=== PATIENT | female | born 2000 | race Caucasian/White ===

== ENCOUNTER → 2022-12-15 15:53 | Outpatient (CLI) | payer OTHER, SELFPAY ==
--- NOTE | ~2022-12-15 | XR_ITS ---
EXAMINATION:XR_[id number]_CR DATE: 12/15/2022 16:38 INDICATION: Neck pain TECHNIQUE: AP, lateral, lateral swimmers and odontoid views of the cervical spine are provided. COMPARISON: None FINDINGS: There is straightening of the cervical spine which can be positional or due to muscular spa sm. Alignment is normal. The odontoid process is intact. No fracture is identified. Vertebral body he ights and disk spaces are normal. Prevertebral soft tissues are normal. IMPRESSION: 1. No acute osseous abnormality. Reviewed, dictated and finalized at location B.
== END ==
DX: M54.2 Cervicalgia (principal); V53.6XXA Passenger in pick-up truck or van injured in collision with car, pick-up truck or van in traffic accident, initial encounter
CPT/HCPCS: 72040

== ENCOUNTER 2023-09-09 11:05 | Outpatient (CLI) | payer OTHER, SELFPAY ==
--- NOTE | ~2023-09-09 | US_ITS ---
US breast BI complete DATE: 09/09/2023 12:02 INDICATION: Nipple discharge bilaterally for 3 months, diminishing recently TECHNIQUE: Real-time imaging of both complete breasts including all 4 quadrants and subareolar area o f each breast COMPARISON: None FINDINGS: No suspicious mass or shadowing of either breast is detected. No cyst or other significant sonographic finding is noted. IMPRESSION: BI-RADS Category 1: Negative Reviewed, dictated and finalized at Location A. Reviewed, dictated and finalized at location A. 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
== END 2023-09-09 11:06 | disposition home or self-care (01) ==
DX: N64.52 Nipple discharge (principal)
CPT/HCPCS: 76641

== ENCOUNTER 2025-03-10 08:23 | Emergency (ER) | payer OTHER, SELFPAY ==
[2025-03-10 08:35] VITALS: BP 116/79; PULSE 92; RESP 16; TEMP 36.5; O2SAT 100
--- NOTE | 2025-03-10 13:40 | ED.EXTPRO ---
HPI - Extremity Problem General Chief complaint: Extremity Problem,Nontraumatic Stated complaint: INGROWN TOENAIL Time Seen by Provider: 03/10/25 08:40 Source: patient and RN notes reviewed Mode of arrival: ambulatory Limitations: no limitations History of Present Illness HPI Narrative: 25-year-old female presents Express Care complaining ingrown toenail to left great toe. Patient states she knows yesterday. Patient reports pain, redness, swelling to her left great toe. Patient says she got some pus out of a yesterday. Patient denies any injuries, fevers, body aches, chills, or any other symptoms. Related Data Home Medications ?Medication ?Instructions ?Recorded ?Confirmed ?Last Taken ?Type cholecalciferol (vitamin D3) 50 50 mcg PO DAILY 01/23/25 03/06/25 Unknown History mcg (2,000 unit) capsule fluoxetine 10 mg capsule (Prozac) 10 mg PO DAILY 01/23/25 03/10/25 Unknown History ascorbic acid (vitamin C) 500 mg 500 mg PO DAILY 02/22/25 03/06/25 Unknown History tablet bupropion HCl 300 mg 24 hr tablet, 300 mg PO QAM 02/22/25 03/10/25 Unknown History extended release Allergies Allergy/AdvReac Type Severity Reaction Status Date / Time No Known Allergies Allergy Verified 03/10/25 08:35 Review of Systems Review of Systems: CONSTITUTIONAL: Denies fever, chills, or sweats. EYES: Denies visual changes, redness, or discharge. ENT: Denies rhinorrhea, congestion, sore throat, or otalgia. CARDIOVASCULAR: Denies chest pain, palpitations, or edema. RESPIRATORY: Denies cough or dyspnea. GASTROINTESTINAL: Denies abdominal pain, nausea, vomiting, or diarrhea. GENITOURINARY: Denies dysuria or hematuria. SKIN: Denies rash or itching. Positive or redness and swelling to toe. MUSCULOSKELETAL: Denies back pain, joint pain, or myalgia. NEUROLOGIC: Denies headache, numbness, or weakness. PSYCHIATRIC: Denies anxiety or depression. All other systems reviewed are negative, except as documented in HPI. [facility] Past Medical History Medical History Depression OCD (obsessive compulsive disorder) PCOS (polycystic ovarian syndrome) Surgical History Surgical History History of ear surgery tubes Family History Family History Grandparent Diabetes mellitus Parkinson disease Social History Social History Smoking status: Never smoker Alcohol intake: current Alcohol use details: occasional Substance use: never Comments At the time of my signature, I reviewed and agree with the nursing past medical, surgical, social, and family history. There is no relevant family history pertinent to the patient complaint. Exam Narrative: GENERAL: This is a well-nourished, well-developed adult, in no apparent distress. They are non ill-appearing, nontoxic appearing. HEAD: normocephalic, atraumatic. EYES: Sclera clear/white. Conjunctiva normal. Vision is grossly intact. Extraocular movements intact EARS: External ears normal, Hearing grossly intact. NOSE: External nose normal THROAT: Mucous membranes moist NECK: Neck supple,. CARDIOVASCULAR: Regular rate and rhythm RESPIRATORY: Respiratory rate normal, respiratory effort nonlabored, no respiratory distress SKIN: Left great toe: Mildly erythematous. Tenderness to palpation to the lateral great toe. Retronychia present lateral great toe. My area of fluctuance or induration. No exudate. Capillary refill less than 2 seconds. Nail bed intact. NEURO: awake, alert, and oriented to person, place and time. There were no obvious focal neurologic abnormalities. EXTREMITIES: No joint tenderness, effusion, or edema noted. Course Course Emergency Course: Portions of this record may have been created with voice recognition software Level of Care: Express Care Visit Vital Signs Vital signs: Vital Signs Temperature 97.7 F 03/10/25 08:35 Pulse Rate 92 03/10/25 08:35 Respiratory Rate 16 03/10/25 08:35 Blood Pressure 116/79 03/10/25 08:35 Pulse Oximetry 100 03/10/25 08:35 Temperature 97.7 F 03/10/25 08:35 Pulse Rate 92 03/10/25 08:35 Respiratory Rate 16 03/10/25 08:35 Blood Pressure 116/79 03/10/25 08:35 Pulse Oximetry 100 03/10/25 08:35 Reviewed MDM - Extremity (Nontraumatic) MDM Narrative Medical decision making narrative: Patient has ingrown toenail to left great toe. Mild paronychia. No evidence of abscess formation. Will prescribe steroid cream up with swelling advised follow-up podiatry her PCP for further management of her ingrown toenail. Discussed physical exam findings. Advised supportive measures and signs/symptoms to go to the ER. Pt is appropriate for outpt treatment and f/u. Differential Diagnosis Differential diagnosis: Likely cellulitis and other (Retronychia, paronychia, toe injury) Critical Care Time Critical Care Time Critical Care Time: No Discharge Plan Discharge Clinical Impression: Ingrowing nail, left great toe Patient Disposition: Home Condition: Stable Instructions: Ingrown Nail (ED) Additional Instructions: You May soak effective foot in warm, soapy water for 10-20 minutes twice daily and then apply the steroid cream to the affected area for 2 weeks. Please follow-up with biodiesel product manager for your PCP for further evaluation management of your ingrown toenail. You may take Tylenol or ibuprofen as needed for pain. If you develops any increased redness, swelling, discharge, or any worsening symptoms please go to the ER immediately. Patient Language: Bangladeshi Prescriptions: New triamcinolone acetonide 0.5 % ointment 1 applic topical BID 14 Days Qty: 15 0RF No Action fluoxetine [Prozac] 10 mg capsule 10 mg PO DAILY cholecalciferol (vitamin D3) 50 mcg (2,000 unit) capsule 50 mcg PO DAILY bupropion HCl 300 mg tablet extended release 24 hr 300 mg PO QAM ascorbic acid (vitamin C) 500 mg tablet 500 mg PO DAILY Follow-up/Referrals: Rolando,Kaylie Spencer MD [Primary Care Provider] - Time of Disposition: 08:46
== END 2025-03-10 08:55 | disposition home or self-care (01) ==
PROVIDERS: PCP Student in an Organized Health Care Education/Training Program
DX: L60.0 Ingrowing nail (principal); Z79.899 Other long term (current) drug therapy
CPT/HCPCS: 99213; G0463

== ENCOUNTER 2025-03-23 18:16 | Emergency (ER) | payer OTHER, SELFPAY ==
[2025-03-23 18:26] VITALS: BP 136/82; PULSE 95; RESP 16; TEMP 36.3; O2SAT 100
--- NOTE | 2025-03-23 18:41 | ED.FEMALEGU ---
HPI - Female Genitourinary General Chief complaint: Urogenital-Female Stated complaint: Uti Symptoms Time Seen by Provider: 03/23/25 18:36 Source: patient and RN notes reviewed Mode of arrival: ambulatory Limitations: no limitations History of Present Illness HPI Narrative: Patient presents today with dysuria and urinary frequency for the last 2 hours. Denies abdominal pain, back pain, hematuria, or any additional symptoms. She took a dose of azo just prior to arrival Related Data Home Medications ?Medication ?Instructions ?Recorded ?Confirmed ?Last Taken ?Type cholecalciferol (vitamin D3) 50 50 mcg PO DAILY 01/23/25 03/06/25 Unknown History mcg (2,000 unit) capsule fluoxetine 10 mg capsule (Prozac) 10 mg PO DAILY 01/23/25 03/10/25 Unknown History ascorbic acid (vitamin C) 500 mg 500 mg PO DAILY 02/22/25 03/06/25 Unknown History tablet bupropion HCl 300 mg 24 hr tablet, 300 mg PO QAM 02/22/25 03/10/25 Unknown History extended release Allergies Allergy/AdvReac Type Severity Reaction Status Date / Time No Known Allergies Allergy Verified 03/23/25 18:17 [facility] Past Medical History Medical History Depression OCD (obsessive compulsive disorder) PCOS (polycystic ovarian syndrome) Surgical History Surgical History History of ear surgery tubes Family History Family History Grandparent Diabetes mellitus Parkinson disease Social History Social History Smoking status: Never smoker Alcohol intake: current Alcohol use details: occasional Substance use: never Comments At time of signature, I have reviewed and agree with nursing past medical, surgical, social and family history unless otherwise noted. Please see nursing chart for further information. There is no relevant family history pertinent to the presenting complaint Exam Narrative: GENERAL: Well-appearing, well-nourished, and in no acute distress. HEAD: Normocephalic, atraumatic. EYES: EOMI. No redness or drainage. Conjunctivae normal. ENT: Mucous membranes pink and moist. NECK: Normal AROM. CHEST: No respiratory distress. Clear to auscultation. HEART: Regular rate and rhythm. No murmur appreciated. ABDOMEN: Soft, nontender, nondistended, normal active bowel sounds. EXTREMITIES: Normal range of motion. No edema. SKIN: Warm, dry, no rash. Capillary refill normal. Normal skin turgor. NEURO: No focal deficits. Alert and oriented x3. Gait steady. PSYCH: Normal affect. No signs of depression or anxiety. Course Course Level of Care: Express Care Visit Vital Signs Vital signs: Vital Signs Temperature 97.4 F L 03/23/25 18: Pulse Rate 95 03/23/25 18:26 Respiratory Rate 16 03/23/25 18:26 Blood Pressure 136/82 03/23/25 18:26 Pulse Oximetry 100 03/23/25 18:26 Temperature 97.4 F L 03/23/25 18:26 Pulse Rate 95 03/23/25 18:26 Respiratory Rate 16 03/23/25 18:26 Blood Pressure 136/82 03/23/25 18:26 Pulse Oximetry 100 03/23/25 18:26 Reviewed MDM - Female Genitourinary Differential Diagnosis Differential diagnosis: Likely urinary tract infection, cystitis and other (Pyelonephritis) Critical Care Time Critical Care Time Critical Care Time: No Discharge Plan Discharge Clinical Impression: Urinary tract infection Qualifiers: Urinary tract infection type: acute cystitis Hematuria presence: with hematuria Qualified Code(s): N30.01 - Acute cystitis with hematuria Patient Disposition: Home Condition: Stable Instructions: Antibiotic Form, Urinary Tract Infection in Women (ED) Additional Instructions: Your urine shows infection today. Take Keflex as prescribed until gone. Your urine will be sent of for a culture to identify what type of bacteria is causing your infection. If the culture shows that your medication will not get rid of your infection, you will be notified and a new antibiotic will be called in for you. If your symptoms worsen to include fever, sweats, chills, nausea, vomiting, severe abdominal or back pain, please go to the ER for further evaluation. Your blood pressure was elevated above 120/80 today at Urgent Care. This puts you above the threshold for follow up. Please schedule a followup visit with your personal physician as soon as possible, for further evaluation and treatment. Even blood pressure exceeding 120/80 may indicate pre-hypertension. Patient Language: Polish Prescriptions: New cephalexin 500 mg capsule 500 mg PO BID 7 Days Qty: 14 0RF No Action triamcinolone acetonide 0.5 % ointment 1 applic topical BID 14 Days Qty: 15 0RF fluoxetine [Prozac] 10 mg capsule 10 mg PO DAILY cholecalciferol (vitamin D3) 50 mcg (2,000 unit) capsule 50 mcg PO DAILY bupropion HCl 300 mg tablet extended release 24 hr 300 mg PO QAM ascorbic acid (vitamin C) 500 mg tablet 500 mg PO DAILY Follow-up/Referrals: PHYSICIAN,EMERGENCY MEDICAL TECHNICIAN BASIC [Primary Care Provider] - Time of Disposition: 18:44
[2025-03-23 18:46] LABS: EDUAAPPEAR Cloudy; EDUABILI Negative (Negative); EDUABLOOD 3+ (Negative); EDUACOLOR1 Dark; EDUAGLUCOSE Negative (Negative); EDUAKETONE Negative (Negative); EDUALEUKO 2+ (Negative); EDUANITRATE Positive (Negative); EDUAPH 6.0; EDUAPROTEIN 2+ (Negative); EDUASPGRAVITY 1.020; EDUAUROBILI 0.2
== END 2025-03-23 18:46 | disposition home or self-care (01) ==
PROVIDERS: Emergency Provider Nurse Practitioner
DX: N30.01 Acute cystitis with hematuria (principal); E28.2 Polycystic ovarian syndrome; F32.A Depression, unspecified; F42.9 Obsessive-compulsive disorder, unspecified
CPT/HCPCS: 81003; 87086; 99213; G0463

== ENCOUNTER 2025-08-21 15:48 | Outpatient (CLI) | payer OTHER, SELFPAY ==
--- NOTE | ~2025-08-21 | US_ITS ---
EXAMINATION: US pelvic complete w TV, 08/21/2025 15:51 COMPRESSOR OPERATOR ADJUSTER HISTORY: N92.6 - Irregular menstruation, unspecified Comparison: None Technique: Lau-scale and color Doppler images were obtained. Findings: Uterus: Uterus anteverted 7.7 x 3.1 x 4.4 cm. . Endometrium 1.5 cm. Endometrium demonstrates a heterogeneous appearance, no increased flow. Right Ovary:Right ovary 3.1 x 2.5 x 3.8 cm, no adnexal mass, normal flow. Left Ovary: Left ovary 2.9 x 2.1 x 3.6 cm, no adnexal mass, normal flow. Free Fluid: None Impression: 1. Heterogeneous appearing endometrium. Six-month follow-up suggested to assess resolution Reviewed, dictated and finalized at location P. RESSOR OPERATOR ADJUSTER Impression: 1. Heterogeneous appearing endometrium. Six-month follow-up suggested to assess resolution
== END 2025-08-21 15:49 | disposition home or self-care (01) ==
PROVIDERS: PCP Nurse Practitioner Obstetrics & Gynecology; Visit Provider Nurse Practitioner Obstetrics & Gynecology
DX: N92.6 Irregular menstruation, unspecified (principal)
CPT/HCPCS: 76830; 76856

== ENCOUNTER 2025-09-08 08:17 | Emergency (ER) | payer OTHER, SELFPAY ==
[2025-09-08 08:45] VITALS: BP 121/77; PULSE 140; RESP 16; TEMP 37.2; O2SAT 100
--- NOTE | 2025-09-08 08:58 | ECG_ITS ---
Test Date: 2025-09-08 08:38:52 Measurements Intervals [place] Rate: 135 P: 19 [place]: 162 QRS: 42 QRSD: 72 T: 0 QT: 274 QTc: 411 Interpretive Statements SINUS TACHYCARDIA LOW QRS VOLTAGE IN PRECORDIAL LEADS BORDERLINE ST-T WAVE ABNORMALITY- INFERIOR LEADS ABNORMAL ECG No previous ECG available for comparison Electronically Signed On 09-08-2025 09:02:14 [employer]AMOND DIE [employer]KER by Jose Raul Mckeon D.O.
--- NOTE | 2025-09-08 08:58 | ED.GENADULT ---
HPI - General Adult General Chief complaint: Unspecified Stated complaint: Flu vs hormone imbalance Time Seen by Provider: 09/08/25 08:59 Source: patient Mode of arrival: ambulatory Limitations: no limitations History of Present Illness HPI narrative: 25 y/o female presented for multiple complaints; endorses back pain, cough, chills and vaginal bleeding with clotting. Says face feels flushed. Onset yesterday. States she stopped progesterone one week ago as prescribed, has been having vaginal bleeding since then as expected, but the clotting was new yesterday; taking for PCOS. Pt also admits she is not consistently taking wellbutrin, prozac as prescribed. Denies palpitations, dizziness, n/v/d/f. Took a 'pain medicine' last night. Related Data Home Medications ?Medication ?Instructions ?Recorded ?Confirmed ?Last Taken ?Type cholecalciferol (vitamin D3) 50 50 mcg PO DAILY 01/23/25 09/08/25 Unknown History mcg (2,000 unit) capsule fluoxetine 10 mg capsule (Prozac) 10 mg PO DAILY 01/23/25 09/08/25 Unknown History ascorbic acid (vitamin C) 500 mg 500 mg PO DAILY 02/22/25 09/08/25 Unknown History tablet bupropion HCl 300 mg 24 hr tablet, 300 mg PO QAM 02/22/25 09/08/25 Unknown History extended release NAC .Route 04/26/25 08/15/25 Unknown History omega 5-nrp-obr-fish oil 60 mg-90 1 cap PO DAILY 04/26/25 09/08/25 Unknown History mg-500 mg capsule (Fish Oil) vitamin B complex (Vitamins B 1 cap PO DAILY 04/26/25 09/08/25 Unknown History Complex capsule) Allergies Allergy/AdvReac Type Severity Reaction Status Date / Time No Known Allergies Allergy Verified 09/08/25 08:40 Review of Systems Review of Systems: CONSTITUTIONAL: Denies body aches, fever, chills, or sweats. EYES: Denies visual changes, redness, or discharge. ENT: Denies rhinorrhea, congestion, sore throat, or otalgia. CARDIOVASCULAR: Denies chest pain, palpitations, or edema. RESPIRATORY: Denies cough or dyspnea. GASTROINTESTINAL: Denies abdominal pain, nausea, vomiting, or diarrhea. GENITOURINARY: reporting vaginal bleeding Denies dysuria or hematuria. SKIN: Denies rash, itching, or wounds. MUSCULOSKELETAL: reports back pain NEUROLOGIC: Denies headache, numbness, tingling, or weakness. All systems reviewed & are unremarkable except as noted in HPI and below PMFSH Past Medical History Medical History Depression OCD (obsessive compulsive disorder) PCOS (polycystic ovarian syndrome) Surgical History Surgical History History of ear surgery tubes Family History Family History Grandparent Diabetes mellitus Parkinson disease Social History Social History Smoking status: Never smoker Alcohol intake: current Alcohol use details: occasional Substance use: never Comments At time of signature, I have reviewed and agree with nursing past medical, surgical, social and family history unless otherwise noted. Please see nursing chart for further information. There is no relevant family history pertinent to the presenting complaint Exam Narrative: GENERAL: Well-appearing, and in no acute distress. HEAD: Normocephalic, atraumatic. EYES: EOMI. No redness or drainage. Conjunctivae normal. ENT: Mucous membranes pink and moist. No rhinorrhea. TMs normal bilaterally. Throat normal. Uvula midline. NECK: Normal AROM. Supple. No lymphadenopathy. CHEST: No respiratory distress. Clear to auscultation. HEART: Regular rhythm, tachy. No murmur appreciated. Normal peripheral pulses. ABDOMEN: Soft, nontender, nondistended, normal active bowel sounds. MUSCULOSKELETAL: tender with light palpation to mid lower back EXTREMITIES: Normal range of motion. No edema. SKIN: Warm, dry, no rash. Capillary refill normal. Normal skin turgor. NEURO: No focal deficits. Alert and oriented x3. Gait steady. PSYCH: Normal affect. Course Course Level of Care: Express Care Visit Vital Signs Vital signs: Vital Signs Temperature 98.9 F 09/08/25 08:45 Pulse Rate 140 H 09/08/25 08:45 Respiratory Rate 16 09/08/25 08:45 Blood Pressure 121/77 09/08/25 08:45 Pulse Oximetry 100 09/08/25 08:45 Temperature 98.9 F 09/08/25 08:45 Pulse Rate 140 H 09/08/25 08:45 Respiratory Rate 16 09/08/25 08:45 Blood Pressure 121/77 09/08/25 08:45 Pulse Oximetry 100 09/08/25 08:45 MDM MDM Narrative Medical decision making narrative: negative flu and COVID. Patient reporting back pain, advised ibuprofen and follow-up with PCP. EKG shows ST, advised f/u with pcp; asymptomatic. Endorses bleeding is improved. Discussed physical exam findings. Advised supportive measures and signs/symptoms to go to the ER. Pt is appropriate for outpt treatment and f/u. Differential Diagnosis Differential Diagnosis: Influenza, covid, sinusitis, OM, strep pharyngitis, URI, musculoskeletal pain ECG Data EKG #1: Attestation: I personally reviewed and interpreted this ECG as follows: ( Sinus tachycardia rate 135, CA 162, QRS 72, QT/ QTC 274/353) ECG completion date: 09/08/25 ECG completion time: 08:38 tachycardia and sinus rhythm Discharge Plan Discharge Clinical Impression: Viral infection, Tachycardia, Back pain Patient Disposition: Home Condition: Stable Instructions: Antibiotic Form, Viral Syndrome (ED) Additional Instructions: Your rapid covid/flu test was negative today. It may be too early to detect the virus, therefore we recommend retesting at home in 1-2 days Continue to follow general precautions: frequent handwashing, wear a mask, isolate/social distance, and avoid crowds if you have a fever. You must be fever free for 24 hours without the use of fever reducing medication (Tylenol/ibuprofen) before returning to work/school/crowds. for pain: Rest. Avoid pushing, pulling, lifting --running or excessive walking-- or anything that worsens the symptoms Tylenol 1000mg every 8 hours as needed You can alternate with ibuprofen 800mg Alternate ice/heat to the site. Lidocaine or salon pas pain patch or use pain cream like icy/hot or biofreeze. Follow up with your primary care provider as needed in 3 days. keep scheduled appointment with OBGYN Go to the ER for worsening symptoms or concerns Patient Language: Slovak Prescriptions: New ibuprofen 800 mg tablet 800 mg PO TID PRN (Reason: pain) Qty: 15 0RF No Action fluoxetine [Prozac] 10 mg capsule 10 mg PO DAILY cholecalciferol (vitamin D3) 50 mcg (2,000 unit) capsule 50 mcg PO DAILY bupropion HCl 300 mg tablet extended release 24 hr 300 mg PO QAM ascorbic acid (vitamin C) 500 mg tablet 500 mg PO DAILY omega 3-uad-hdx-fish oil [Fish Oil] 60-90-500 mg capsule 1 cap PO DAILY NAC .Route Rx Instructions: as directed vitamin B complex [Vitamins B Complex] Capsule 1 cap PO DAILY Follow-up/Referrals: UNKNOWN,DOCTOR [Primary Care Provider] Time of Disposition: 09:12
[2025-09-08 09:07] LABS: EDCOVIDSCREEN Negative (Negative); EDINFLUASCREEN Negative (Negative); EDINFLUBSCREEN Negative (Negative)
== END 2025-09-08 09:15 | disposition home or self-care (01) ==
PROVIDERS: Emergency Provider Nurse Practitioner Family
DX: B34.9 Viral infection, unspecified (principal); R00.0 Tachycardia, unspecified; M54.50 Low back pain, unspecified; E28.2 Polycystic ovarian syndrome; F32.A Depression, unspecified; F42.9 Obsessive-compulsive disorder, unspecified
CPT/HCPCS: 87426; 87804; 93005; 99213; G0463